=== PATIENT | male | born 1965 ===

== ENCOUNTER 2023-12-18 12:17 | Emergency (ER) | payer OTHER ==
[~2023-12-18] VITALS: Ht 177.8 cm; Wt 78.5 kg
[2023-12-18 13:11] LABS: Base Excess Venous -0.7 mmol/L; Bicarbonate Venous 24.2 mmol/L (24.0-30.0); PCO2 Venous 34.3 mmHg (38-42); pH Blood Venous 7.44 (7.34-7.37)
[2023-12-18 13:17] LABS: BASOPHILS ABSOLUTE AUTO 0.01 K/mm3 (0.00-0.23); BASOPHILS PERCENT AUTO 0 % (0-2); EOSINOPHILS ABSOLUTE AUTO 0.02 K/mm3 (0.00-0.68); EOSINOPHILS PERCENT AUTO 0 % (0-6); Hematocrit 34.3 % (37.0-53.0); Hemoglobin 11.7 g/dL (13.5-17.5); IMMATURE GRAN ABSOLUTE AUTO 0.03 K/mm3 (0.00-0.10); IMMATURE GRAN PERCENT AUTO 0 % (0-1); LYMPHOCYTES ABSOLUTE AUTO 0.32 K/mm3 (0.84-5.20); LYMPHOCYTES PERCENT AUTO 3 % (21-46); MONOCYTES ABSOLUTE AUTO 0.64 K/mm3 (0.16-1.47); MONOCYTES PERCENT AUTO 6 % (4-13); Mean Corpuscular HGB 31.7 pg (26.0-34.0); Mean Corpuscular HGB Conc 34.1 g/dL (31.5-36.5); Mean Corpuscular Volume 93 fL (80-100); Mean Platelet Volume 10.7 fL (9.1-12.4); NEUTROPHILS ABSOLUTE AUTO 8.92 K/mm3 (1.96-9.15); NEUTROPHILS PERCENT AUTO 90 % (41-73); Platelet Count 169 K/mm3 (150-400); RDW Standard Deviation 44.1 fL (35.1-46.3); Red Blood Cell Count 3.69 M/mm3 (4.30-5.90); White Blood Cell Count 9.94 K/mm3 (4.00-11.30)
[2023-12-18] MEDS ORDERED: LISI20 PO (13:18)
[2023-12-18] MEDS ORDERED: CLOP75 PO (13:18)
[2023-12-18] MEDS ORDERED: ZANAFLEX4 M1 (13:19)
[2023-12-18] MEDS ORDERED: MIRAPEX PO (13:20)
[2023-12-18] MEDS ORDERED: GLYC2 PO (13:20)
[2023-12-18] MEDS ORDERED: LORA.5 PO (13:20)
[2023-12-18] MEDS ORDERED: Dextromethorphan Polistirix 30 MG/5 ML 5ML Oral Syringe PO ONE (13:20)
[2023-12-18] MEDS ORDERED: Acetaminophen Suspension 160 MG/5 ML 5MLUDC PO ONE (13:20)
[2023-12-18] MEDS ORDERED: RILUZOLE50 MG PO (13:21)
[2023-12-18 13:37] LABS: Albumin, Blood 3.7 g/dL (3.4-5.0); Albumin/Globulin Ratio 0.9 (0.8-1.8); Bilirubin, Total 1.3 mg/dL (0.1-1.0); Bun/Creatinine Ratio 30.1 (12.0-20.0); Calcium, Blood 8.8 mg/dL (8.5-10.1); Creatinine, Blood 0.57 mg/dL (0.60-1.20); Globulin, Blood 4.1 g/dL (2.2-4.0); Potassium, Blood 3.8 mmol/L (3.5-5.5); Total Protein, Blood 7.8 g/dL (6.4-8.2)
[2023-12-18 14:04] LABS: Influenza A, PCR NEGATIVE (NEGATIVE); Influenza B, PCR NEGATIVE (NEGATIVE); Resp Syncytial Virus, PCR NEGATIVE (NEGATIVE)
[2023-12-18 14:20] LABS: SARS-Cov-2 (COVID-19) PCR, MMC POSITIVE (NEGATIVE)
[2023-12-18] MEDS ORDERED: PAXLOVID 300-11 EAC1 PO (14:41)
== END 2023-12-18 16:03 | disposition home or self-care (01) ==
LOC: ER 12:17
PROVIDERS: Emergency Medicine
DX: U07.1 COVID-19 (principal); I25.2 Old myocardial infarction; Z86.69 Personal history of other diseases of the nervous system and sense organs
CPT/HCPCS: 0241U; 71045; 80053; 82803; 83880; 85025; 93005; 93010; 99285-25; A9270